=== PATIENT | male | born 1945 | race Caucasian/White ===

== ENCOUNTER 2017-10-04 09:59 | Day surgery (SDC) | payer MEDICARE, BC ==
[~2017-10-04] VITALS: Ht 177.8 cm; Wt 93.0 kg
[~2017-10-04 09:59] MED LIST: ASPI81TA82 PO; ATOR10 PO; SULF1TAB47 PO; TAB-TAB PO
[2017-10-04 10:03] VITALS: BP 142/70; PULSE 70; RESP 16; TEMP 97.4; O2SAT 98
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
[2017-10-04] MEDS ORDERED: ASPI-516 CHEW (10:23)
[2017-10-04] MEDS ORDERED: TAMS5CAP PO (10:23)
[2017-10-04] MEDS ORDERED: ATOR10TA15 PO (10:23)
[2017-10-04] MEDS ORDERED: MULTTAB67 PO (10:23)
[2017-10-04] MEDS ORDERED: ceFAZolin 2 GM PREMIX 50 ML IV ONE (10:30)
[2017-10-04] MEDS ORDERED: SODIUM CHLORID 0.9% 500 ML INJ 500 ML IV ONE (10:30)
[2017-10-04] MEDS ORDERED: TETANUS/DIPHTHERIA TOXOID ADULT 0.5 ML VIAL IM ONE (10:30)
[2017-10-04 11:00] LABS: AUTOMATED NEUTROPHIL # 3.2 TH/MM3 (1.8-7.7); BASOPHIL # 0.1 TH/MM3 (0-0.2); BASOPHIL % 1.2 % (0.0-2.0); EOSINOPHIL # 0.1 TH/MM3 (0-0.4); EOSINOPHIL % 1.7 % (0.0-4.0); HEMATOCRIT 40.7 % (39.0-51.0); HEMOGLOBIN 13.9 GM/DL (13.0-17.0); LYMPH % 18.6 % (9.0-44.0); LYMPHOCYTE # 0.8 TH/MM3 (1.0-4.8); MEAN CELL VOLUME 85.2 FL (80.0-100.0); MEAN CORPUSCULAR HEMOGLOBIN 29.1 PG (27.0-34.0); MEAN CORPUSCULAR HGB CONC 34.2 % (32.0-36.0); MEAN PLATELET VOLUME 7.5 FL (7.0-11.0); MONO % 8.7 % (0.0-8.0); MONOCYTE # 0.4 TH/MM3 (0-0.9); NEUT % 69.8 % (16.0-70.0); PLATELET COUNT 239 TH/MM3 (150-450); RED BLOOD COUNT 4.78 MIL/MM3 (4.50-5.90); RED CELL DISTRIBUTION WIDTH 12.2 % (11.6-17.2); WHITE BLOOD COUNT 4.6 TH/MM3 (4.0-11.0)
[2017-10-04 11:09] LABS: CALCIUM 8.8 MG/DL (8.5-10.1)
[2017-10-04 11:10] LABS: BICARBONATE 24.2 MEQ/L (21.0-32.0)
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
[2017-10-04 11:13] LABS: CREATININE 0.93 MG/DL (0.60-1.30)
[2017-10-04] MEDS ORDERED: ePHEDrine/NS 25 MG/5 ML SYRINGE IV ONE (12:00)
[2017-10-04] MEDS ORDERED: GLYCOPYRROLATE 1 MG/5 ML SYRINGE IV PUSH ONE (12:00)
[2017-10-04] MEDS ORDERED: ONDANSETRON HCL 4 MG/2 ML VIAL IV PUSH ONE (12:00)
[2017-10-04] MEDS ORDERED: ROCURONIUM INJ 50 MG/5 ML SYRINGE IV PUSH ONE (12:00)
[2017-10-04] MEDS ORDERED: PROPOFOL 200 MG/20 ML AMP IV ONE (12:00)
[2017-10-04] MEDS ORDERED: SUCCINYLCHOLINE CHLORIDE 100 MG/5 ML SYRINGE IV PUSH ONE (12:00)
[2017-10-04] MEDS ORDERED: FAMOTIDINE 20 MG/2 ML VIAL ONE (12:25)
[2017-10-04] MEDS ORDERED: MIDAZOLAM HCL 2 MG/2 ML VIAL ONE (12:26)
[2017-10-04 12:27] VITALS: BP 149/77
[2017-10-04] MEDS ORDERED: MUPIROCIN 2% OINT 22 GM TUBE ONE (12:42)
[2017-10-04] MEDS ORDERED: LIDOCAINE 1%/EPINEPHrine 1:100,000 SOLN 30 ML VIAL ONE (12:42)
[2017-10-04 14:45] VITALS: PULSE 87
[2017-10-04 15:51] VITALS: BP 147/81; PULSE 83; RESP 16; TEMP 97.9; O2SAT 98
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
== END 2017-10-04 15:56 | disposition home or self-care (01) ==
LOC: PHED 09:59 → PHSDC 11:37
PROVIDERS: ATTEND Otolaryngology
DX: S01.311A Laceration without foreign body of right ear, initial encounter (principal); S09.90XA Unspecified injury of head, initial encounter; E78.00 Pure hypercholesterolemia, unspecified; Z79.82 Long term (current) use of aspirin; V97.32XA Injured by rotating propeller, initial encounter; Y92.520 Airport as the place of occurrence of the external cause; Y93.H9 Activity, other involving exterior property and land maintenance, building and construction; Z51.89 Encounter for other specified aftercare
CPT/HCPCS: 00300; 13152; 13153; 70450; 80048; 85025; 85610; 96365; 99285; J0330; J0690; J2250; J2405; J3010; J7040

== ENCOUNTER → 2017-10-06 | Day surgery (SDC) | payer MEDICARE, BC ==
[~2017-10-06] VITALS: Ht 177.8 cm; Wt 94.2 kg
[~2017-10-06] MED LIST changes: +ACETAMINOPHEN 1000 MG/100 ML 100 ML IV ONE; +ACETAMINOPHEN 325 MG TAB PO PRN; +ASPI-516 CHEW; -ASPI81TA82 PO; -ATOR10 PO; +ATOR10TA15 PO; +CHLORHEXIDINE GLUCONATE 2 % 1 PACK (2 CLOTHS) TOPICAL PRN; +CLINDAMYCIN 600 MG/NS 100 ML IV ONE; +CLINDAMYCIN PHOS 600 MG/4 ML VIAL ONE; +DEXAMETHASONE SOD PHOS 4 MG/ML VIAL IV ONE; +DO NOT ADM ANY ANTICOAGULANT DRUGS PRN; +FAMOTIDINE 20 MG/2 ML VIAL ONE; +LACTATED RINGER'S 1000 ML INJ 1,000 ML IV SCH; +LACTATED RINGER'S 1000 ML IV PRN; +LIDOCAINE 1%/EPINEPHrine 1:100,000 SOLN 20 ML VIAL ONE; +LIDOCAINE HCL 1% PF 5 ML SYRINGE OTHER ONE; +METOPROLOL TARTRATE 25 MG TAB PO PRN; +MIDAZOLAM HCL 2 MG/2 ML VIAL ONE; +MULTTAB67 PO; +MUPIROCIN 2% OINT 22 GM TUBE ONE; +ONDANSETRON HCL 4 MG/2 ML VIAL IV PUSH ONE; +POVIDONE IODINE 5% (ANTISEPSIS KIT) 4 APPLICATIONS EACH NARE PRN; +PROPOFOL 200 MG/20 ML AMP IV ONE; +SODIUM CHLORID 0.9% 500 ML IV PRN; +SODIUM CHLORIDE 0.9% INJ 100 ML ONE; -SULF1TAB47 PO; -TAB-TAB PO; +TAMS5CAP PO
--- NOTE | 2017-10-06 12:09 | EKG ---
Date Performed: 10/06/2017 Time Performed: 11:05:29 PTAGE: 72 years EKG: Sinus rhythm WITH SINUS ARRHYTHMIA NORMAL ECG NO PREVIOUS TRACING DOCTOR: Kvng Russell Interpretating Date/Time 10/06/2017 12:08:21
[2017-10-06 14:40] VITALS: BP 147/76; PULSE 56; RESP 20; TEMP 96.8; O2SAT 100
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
== END | disposition home or self-care (01) ==
LOC: HSDC 10:17
PROVIDERS: ATTEND Otolaryngology
DX: H95.51 Postprocedural hematoma of ear and mastoid process following a procedure on the ear and mastoid process (principal); H95.53 Postprocedural seroma of ear and mastoid process following a procedure on the ear and mastoid process; Z01.810 Encounter for preprocedural cardiovascular examination
CPT/HCPCS: 00120; 69005; 93005; J0131; J1100; J2250; J2405; J3010; J7120